=== PATIENT | male | born 1995 | race Caucasian/White ===

== ENCOUNTER 2022-05-27 17:45 | Emergency (ER) | payer OTHER ==
[~2022-05-27] VITALS: Ht 193 cm; Wt 96.4 kg
[2022-05-27] MEDS ORDERED: ACETAMINOPHEN TAB 650MG DOSE (2X325MG) PO ONE (18:15)
[2022-05-27 19:58] VITALS: BP 121/63
== END 2022-05-27 20:03 | disposition home or self-care (01) ==
LOC: M ED 17:45
DX: S80.02XA Contusion of left knee, initial encounter (principal); S09.90XA Unspecified injury of head, initial encounter; K50.90 Crohn's disease, unspecified, without complications; F17.200 Nicotine dependence, unspecified, uncomplicated; V40.0XXA Car driver injured in collision with pedestrian or animal in nontraffic accident, initial encounter; Z88.0 Allergy status to penicillin; Y99.9 Unspecified external cause status; Y93.89 Activity, other specified; Y92.410 Unspecified street and highway as the place of occurrence of the external cause